=== PATIENT | male | born 1970 | race Caucasian/White ===

== ENCOUNTER 2016-12-09 14:21 | Emergency (ER) | payer OTHER ==
[2016-12-09 14:29] VITALS: BP 176/86; PULSE 102; RESP 18; TEMP 98.6; O2SAT 97
--- NOTE | 2016-12-09 14:37 | EDPHY ---
H & P Time Seen by Provider: 12/09/16 14:28 HPI/ROS: CHIEF COMPLAINT: Right shoulder injury HISTORY OF PRESENT ILLNESS: Fall snowboarding on the right shoulder and elbow at 11:30 a.m. REVIEW OF SYSTEMS: No neck pain and no weakness or numbness in the right hand. No forearm elbow wrist or hand symptoms. PAST MEDICAL HISTORY: Negative Social history: Lives in [place] General Appearance: Alert and conversant, cooperative. Distal clavicular and right AC joint tenderness. No skin tenting or laceration. Good internal and external rotation of the right shoulder but pain with passive and active abduction Normal range of motion of the elbow wrist and hand with no tenderness distal to the proximal humerus. Normal motor sensory in the right hand, and radial pulse present. Emergency Department course/MDM: Declined pain medication. Plan for x-ray. 1500: X-rays reviewed with the patient. Mandatory orthopedic follow-up. Sling for comfort Smoking Status: Never smoked Constitutional: Initial Vital Signs Temperature (C) 37 C 12/09/16 14:26 Heart Rate 102 H 12/09/16 14:26 Respiratory Rate 18 12/09/16 14:26 Blood Pressure 176/86 H 12/09/16 14:26 O2 Sat (%) 97 12/09/16 14:26 O2 Delivery Mode Room Air Allergies/Adverse Reactions: No Known Allergies Allergy (Unverified 12/09/16 14:29) Home Medications: Medication Instructions Recorded NK [No Known Home Meds] 12/09/16 MDM/Departure - MDM Diagnostics: X-ray right shoulder personally interpreted by me shows AC separation mildly displaced. - Depart Disposition: Home, Routine, Self-Care Clinical Impression: AC separation, type 2 Qualifiers: Encounter type: initial encounter Laterality: right Qualified Code(s): S43.101A - Unspecified dislocation of right acromioclavicular joint, initial encounter Condition: Good Instructions: Acromioclavicular Separation (ED) Additional Instructions: Sling for comfort. Activity as tolerated. Follow-up this week in the office with Orthopedics. Referrals: Kvng Catherine MD [Medical Doctor] - As per Instructions
== END 2016-12-09 15:07 | disposition home or self-care (01) ==
DX: S43.101A Unspecified dislocation of right acromioclavicular joint, initial encounter (principal); V00.311A Fall from snowboard, initial encounter; Y93.23 Activity, snow (alpine) (downhill) skiing, snowboarding, sledding, tobogganing and snow tubing
CPT/HCPCS: A4565